=== PATIENT | female | born 1995 | race African-American/Black ===

== ENCOUNTER 2017-01-09 18:15 | Emergency (ER) | payer OTHER ==
--- NOTE | 2017-01-09 19:10 | RAD ---
INDICATION: Chest pain COMPARISON: None TECHNIQUE: PA and lateral dual-energy views were obtained. FINDINGS: Bones/Soft Tissues: There are no acute bony findings. Cardiomediastinal: The cardiomediastinal silhouette is normal. Lungs: There are no infiltrates. There is no pneumothorax. Pleura: There are no pleural effusions. Other: None IMPRESSION: NORMAL CHEST.
[2017-01-09 19:49] LABS: Hematocrit 39 % (35-47); Hemoglobin 12.9 g/dl (12.0-16.0); Mean Corpuscular HGB Conc 33 g/dl (31-36); Mean Corpuscular Hemoglobin 27 pg (27-31); Mean Corpuscular Volume 82 fL (80-97); Mean Platelet Volume 7 um3 (7.4-10.4); Red Blood Count 4.77 10^6/ul (4.0-5.4); Red Cell Distribution Width 14 % (10.5-15); White Blood Count 7.4 10^3/ul (3.5-10.8)
--- NOTE | 2017-01-09 19:49 | ED ---
HPI Chest Pain - HPI Summary HPI Summary: 21F presents with left side chest pain for a week. She states the pain is pressure like and intermittent located on left side of chest. Pain is worst in the morning. She states laying on that side makes it better. She states sometimes she feels short of breath with the pain. She denies any recent travel , pain or swelling in her calf muscles. She is not on OCP. She is a nonsmoker and does not have a family history of CAD. She denies any personal history of HTN, dyslipidemia, or DM. She has not taken anything for her pain. She admits to anxiety. She denies any cough or acid reflex. She denies any palpitations. - History of Current Complaint Chief Complaint: EDChestWallPain Time Seen by Provider: 01/09/17 19:16 Pain Intensity: 1 - Allergy/Home Medications Allergies/Adverse Reactions: Allergies Allergy/AdvReac Type Severity Reaction Status Date / Time No Known Allergies Allergy Verified 01/09/17 18:20 Home Medications: Home Medications NK [No Home Medications Reported] 01/09/17 [History Confirmed 01/09/17] PMH/Surg Hx/FS Hx/Imm Hx Endocrine/Hematology History: Denies: Hx Anticoagulant Therapy, Hx Diabetes Cardiovascular History: Denies: Hx Hypertension - Immunization History Date of Tetanus Vaccine: utd Date of Influenza Vaccine: utd Infectious Disease History: Yes Infectious Disease History: Denies: Traveled Outside the [place] in Last 30 Days - Family History Known Family History: Negative: Cardiac Disease - Social History Alcohol Use: None Substance Use Type: Reports: None Smoking Status (MU): Never Smoked Tobacco Review of Systems Negative: Fever Positive: Chest Pain Positive: Shortness Of Breath. Negative: Cough Negative: Abdominal Pain All Other Systems Reviewed And Are Negative: Yes Physical Exam Triage Information Reviewed: Yes Vital Signs On Initial Exam: Initial Vitals Temp Pulse Resp BP Pulse Ox 98.6 F 88 17 152/73 100 01/09/17 18:17 01/09/17 18:17 01/09/17 18:17 01/09/17 18:17 01/09/17 18:17 Vital Signs Reviewed: Yes Appearance: Positive: Well-Appearing Skin: Positive: Warm, Dry Head/Face: Positive: Normal Head/Face Inspection Eyes: Positive: Normal, Conjunctiva Clear ENT: Positive: Normal ENT inspection, Pharynx normal, TMs normal Respiratory/Lung Sounds: Positive: Clear to Auscultation, Breath Sounds Present Cardiovascular: Positive: Normal, RRR Abdomen Description: Positive: Nontender, Soft Bowel Sounds: Positive: Present Musculoskeletal: Negative: Edema Left, Edema Right - [place] Coma Scale Coma Scale Total: 15 Diagnostics - Vital Signs Vital Signs Temp Pulse Resp BP Pulse Ox 01/09/17 18:30 98.6 F 88 17 152/73 100 01/09/17 18:17 98.6 F 88 17 152/73 100 - Laboratory Result Diagrams: 01/09/17 19:33 01/09/17 19:33 Lab Statement: Any lab studies that have been ordered have been reviewed, and results considered in the medical decision making process. - Radiology chest Xray Interpretation: No Acute Changes Radiology Interpretation Completed By: Radiologist - EKG No standard instances Cardiac Rate: NL EKG Rhythm: Sinus Rhythm EKG Interpretation: normal Chest Pain Course/Dx - Course Course Of Treatment: 21F presents with intermittent left sided chest pain for a week. never had this before. admits to SOB occasionally. She has no risk factors for CAD. nonsmoker. no recent travel or risk factors for PE. chest pain is not reproducible on exam. states under a lot of stress recently due to finals so pain may be related to stress. chest xray, EKG and labs: wbc, troponin , d-dimer normal. told likely musculoskeletal or anxiety. patient understands and agrees with plan - Chest Pain Differential Diagnosis/HQI/PQRI: Chest Wall, GI Disease, Lower Respiratory Infection, Pulmonary Embolism - Diagnoses Provider Diagnoses: Chest wall pain Discharge - Discharge Plan Condition: Good Disposition: HOME Patient Education Materials: Chest Wall Pain (ED) Referrals: No Primary Care Phys,NOPCP [Primary Care Provider] - Additional Instructions: Take ibuprofen every 6 hours for pain Meditate, focus on breathing or exercise to help deal with stress Return to ED if develop any new or worsening symptoms
[2017-01-09 20:03] LABS: Albumin 4.2 g/dL (3.2-5.2); BUN/Creatinine Ratio 17.1 (8-20); Calcium 9.5 mg/dL (8.6-10.3); EGFR African American 124.8 (>60); Globulin 3.5 g/dL (2-4); Potassium 3.5 mmol/L (3.5-5.0); Total Bilirubin 0.4 mg/dL (0.2-1.0); Total Protein 7.7 g/dL (6.4-8.9)
[2017-01-09 20:05] VITALS: BP 121/70
== END 2017-01-09 20:53 | disposition home or self-care (01) ==
LOC: ED 18:15
DX: R07.89 Other chest pain (principal); R06.02 Shortness of breath
CPT/HCPCS: 36415; 71020; 80053; 84484; 85025; 85379; 93005; 99283